=== PATIENT | female | born 1970 | race Caucasian/White ===

== ENCOUNTER 2025-01-17 07:30 | Observation (INO) ==
[2025-02-05] MEDS ORDERED: SUPRANE IN ONE (09:50)
[2025-02-05] MEDS ORDERED: PRECEDEX INJ VIAL ONE (09:50)
[2025-02-05] MEDS ORDERED: KETAMINE HCL ONE (09:50)
[2025-02-05] MEDS: NOZIN NASAL SANITIZER TP ONE (10:21)
[2025-02-05] MEDS: NS 100 ML IV 100 ML ONE (10:22)
[2025-02-05] MEDS: NS 1,000 ML IV 1,000 ML ONE ×2 (10:22→13:58)
[2025-02-05] MEDS: ANCEF VIAL 1 GRAM ONE (10:22)
[2025-02-05] MEDS: TRANSDERM-SCOP TD ONE ×2 (10:32→10:57)
[2025-02-05] MEDS: CLEOCIN 600 MG IV PREMIX 600 MG/50 ML BAG IV ONE (10:35)
[2025-02-05 10:50] VITALS: BMI 25.0
[2025-02-05] MEDS: MARCAINE 0.25% INJ ONE (10:55)
[2025-02-05] MEDS: NAROPIN 0.75% EPI ONE (11:00)
[2025-02-05] MEDS: BYFAVO INJ IVP ONE (11:00)
[2025-02-05] MEDS: ZOFRAN INJ 4 MG VIAL IVP PRN ×2 (11:55→16:24)
[2025-02-05] MEDS: PEPCID 20 MG VIAL IVP PRN (11:55)
[2025-02-05] MEDS: REGLAN INJ 10 MG VIAL IVP PRN (11:55)
[2025-02-05] MEDS: CLEOCIN 600 MG IV PREMIX 600 MG/50 ML BAG IV PRN (11:58)
[2025-02-05] MEDS: ZEMURON 100 MG VIAL ONE (11:58)
[2025-02-05] MEDS: ZOFRAN INJ 4 MG VIAL ONE (11:58)
[2025-02-05] MEDS: REGLAN INJ 10 MG VIAL ONE (11:58)
[2025-02-05] MEDS: DIPRIVAN VIAL 20 ML ONE (11:58)
[2025-02-05] MEDS: BARHEMSYS INJ ONE (11:58)
[2025-02-05] MEDS: NS 1,000 ML IV 0 ML IV PRN (11:58)
[2025-02-05] MEDS: FENTANYL VIAL INJ 100 mcg ONE (11:58)
[2025-02-05] MEDS: PEPCID 20 MG VIAL ONE (11:58)
[2025-02-05] MEDS: BRIDION ONE (11:58)
[2025-02-05] MEDS: DIPRIVAN VIAL 120 ML IVP PRN (12:02)
[2025-02-05] MEDS: ZEMURON 100 MG VIAL IVP PRN (12:02)
[2025-02-05] MEDS: XYLOCAINE 2 % (PLAIN) INJ PRN (12:02)
[2025-02-05] MEDS: FENTANYL VIAL INJ 100 mcg IVP PRN (12:02)
[2025-02-05] MEDS: DANTRIUM IVP PRN (12:07)
[2025-02-05] MEDS: BYFAVO INJ IVP PRN (12:22)
[2025-02-05] MEDS: KETAMINE HCL IV PRN (13:03)
[2025-02-05] MEDS: DIPRIVAN VIAL 200 ML IVP PRN (14:09)
[2025-02-05] MEDS: PRECEDEX INJ VIAL IVP PRN (14:30)
[2025-02-05] MEDS: NICARDIPINE HCL VIAL IV PRN (14:38)
[2025-02-05] MEDS: DILAUDID INJ ONE (14:45)
[2025-02-05] MEDS: DILAUDID INJ IVP PRN (14:47)
[2025-02-05] MEDS ORDERED: REGLAN INJ 10 MG VIAL IVP PRN (15:08)
[2025-02-05] MEDS ORDERED: BENADRYL INJ 50 MG VIAL IVP PRN (15:08)
[2025-02-05] MEDS ORDERED: DILAUDID INJ IVP PRN (15:08)
[2025-02-05] MEDS ORDERED: BARHEMSYS INJ IVP PRN (15:08)
[2025-02-05] MEDS ORDERED: ZOFRAN INJ 4 MG VIAL IVP PRN ×2 (15:08→18:43)
[2025-02-05] MEDS: BRIDION IVP PRN (15:22)
[2025-02-05] MEDS ORDERED: PERCOCET TAB 5/325 MG PO PRN (15:29)
[2025-02-05] MEDS: NS 1,000 ML IV 1,000 ML IV SCH (16:45)
[2025-02-05] MEDS ORDERED: PROVENTIL NEB TX 0.083% 2.5MG/ 3ML ONE (18:52)
[2025-02-05] MEDS: PROVENTIL NEB TX 0.083% 2.5MG/ 3ML NEB SCH (19:54)
[2025-02-05] MEDS: TYLENOL 325 MG TAB PO PRN (20:06)
[2025-02-05] MEDS: COLACE CAP 100 MG PO SCH (22:22)
[2025-02-06] MEDS: NORCO 5/325 MG TAB PO PRN (03:54)
[2025-02-06 05:44] LABS: BLOOD UREA NITROGEN 6 mg/dL (7-18); CALCIUM 8.5 mg/dL (8.5-10.1); CARBON DIOXIDE 28.1 mmol/L (21-32); CHLORIDE 100 mmol/L (98-107); COR NA(FOR HYPERGLY) 138 mmol/L (136-145); CREATININE 0.94 mg/dL (0.55-1.02); GLUCOSE 114 mg/dL (65-99); POTASSIUM 3.8 mmol/L (3.5-5.1); SODIUM 138 mmol/L (136-145); eGFR NON BLACK RACES > 60 (>60)
--- NOTE | 2025-02-06 08:41 | NOTE.SOAP ---
Soap Note Note for Day of Date of Exam: 02/06/25 Subjective Data Subjective Data: POD#1 hardware removal and total ankle arthroplasty. Pain is adequately controlled. Has been taking [place], is allergic to Percocet. She denies any nausea, vomiting, chills, shortness of breath, chest pain, calf pain, profuse sweating. She did run a fever of 102 last night but nursing stated she had five blankets on her and her spouse was in the bed with her. Objective Data Objective Data: Right Lower Extremity Exam: Dressing taken down. Super saturated. No hematoma under incisions. No continous bleeding from incisions. Redressed with sterile 4x4s, ABD, webroll, and splint and LESIA. No signs or symptoms concerning for DVT or PE. Assessment Assessment: 54 year old F POD#1 HWR and Total Ankle Arthroplasty, right Plan Plan: - NWB to RLE. - Pain regimen on board. - Wrote Rx for [place] 10mgs. - Start Lovenox today. - Okay for discharge once seen by Dr. Cruz.
[2025-02-06] MEDS: LOVENOX INJ 40 MG SYR SC SCH (08:43)
[2025-02-06] MEDS: EPHEDRINE SULFATE INJ ONE (08:50)
[2025-02-06] MEDS: NEO-SYNEPHRINE INJ ONE (08:53)
[2025-02-06] MEDS ORDERED: CONSULT PHARMACY - POTASSIUM & MAGNESIUM XX SCH (09:00)
[2025-02-06] MEDS ORDERED: DILAUDID INJ ONE (09:03)
[2025-02-06] MEDS: DILAUDID INJ IVP ONE ×2 (09:07→15:26)
[2025-02-06] MEDS: K-DUR TAB 20 MEQ PO SCH (09:21)
[2025-02-06] MEDS: TORADOL 60 MG VIAL IM ONE (16:49)
[2025-02-07] MEDS: MAALOX or MYLANTA PO PRN (01:11)
[2025-02-07 04:23] VITALS: TEMP 98.6
[2025-02-07 06:23] VITALS: RESP 18
[2025-02-07 06:24] LABS: BASOPHILS % (AUTO) 0.6 % (0.2-1.0); EOSINOPHILS % (AUTO) 0.2 % (0.9-2.9); HEMATOCRIT 30.3 % (36.0-47.0); HEMOGLOBIN 10.6 g/dL (12.0-16.0); LYMPHOCYTES # (AUTO) 0.7 X10^3/uL (1.3-2.9); LYMPHOCYTES % (AUTO) 10.1 % (21.0-51.0); MEAN CORPUSCULAR HEMOGLOBIN 26.7 pg (27.0-34.0); MEAN CORPUSCULAR HGB CONC 35.1 g/dL (33.0-35.0); MEAN CORPUSCULAR VOLUME 76.2 fL (80.0-100.0); MEAN PLATELET VOLUME 7.1 fL (7.4-11.0); MONOCYTES # (AUTO) 0.5 x10^3/uL (0.3-0.8); MONOCYTES % (AUTO) 8.2 % (0.0-13.0); NEUTROPHILS # (AUTO) 5.4 x10^3/uL (2.2-4.8); NEUTROPHILS % (AUTO) 80.9 % (42.0-75.0); PLATELET COUNT 122 X10^3/uL (150.0-450.0); RED BLOOD COUNT 3.97 X10^6/uL (3.5-5.4); RED CELL DISTRIBUTION WIDTH 14.1 % (11.6-16.5); WHITE BLOOD COUNT 6.6 X10^3/uL (3.6-10.0)
[2025-02-07 07:57] VITALS: BP 132/79; PULSE 92; O2SAT 97
--- NOTE | 2025-02-07 08:54 | NOTE.SOAP ---
Soap Note Note for Day of Date of Exam: 02/07/25 Subjective Data Subjective Data: POD#2. No new complaints. Pain is adequately controlled. Objective Data Objective Data: Left Lower Extremity Exam: Dressing taken down. Blister formation noted medially. Ecchymosis noted medially as well. Did not pop blister. Redressed with 4x4s, ABD, Webroll, Splint, LESIA. No signs or symptoms concerning for DVT or PE. Assessment Assessment: 54 year old POD#2 Total Ankle Arthroplasty Revision, left Plan Plan: - NWB to LLE. - Rx in charts for pain medication, anti-nausea, Lovenox. - Okay for discharge once evaluated by Dr. Cruz.
== END 2025-02-07 11:15 | disposition home or self-care (01) ==
LOC: MED/SURG
PROVIDERS: ADMIT Obstetrics & Gynecology Obstetrics; ATTEND Obstetrics & Gynecology Obstetrics
DX: E11.42 Type 2 diabetes mellitus with diabetic polyneuropathy; G89.18 Other acute postprocedural pain; T84.098A Other mechanical complication of other internal joint prosthesis, initial encounter; T84.84XA Pain due to internal orthopedic prosthetic devices, implants and grafts, initial encounter